=== PATIENT | male | born 1960 | race Caucasian/White ===

== ENCOUNTER → 2016-12-28 | Outpatient (CLI) | payer OTHER ==
[~2016-12-28] MED LIST: ARMOUR THYROID60 MG PO; ASPIRIN325 MG PO; ATIVAN 1 MG1 MG PO; BENICAR 20 MG20 MG PO; BRINTELLIX10 MG PO; DESYREL100 MG PO; DRISDOL 5050000 UNIT PO; FLOMAX0.4 MG PO; LANTUS (IN100 UNIT/M SUB-Q; LOPRESSOR25 MG PO; NITROSTAT0.4 MG SL; NORVASC2.5 MG PO; NOVOLIN R100 UNIT/1 SUB-Q; NOVOLIN-R100 UNIT/M SUB-Q; PROAIR RESPICL90 MCG INH; PROMETHAZINE HC25 M1 PO; PROTONIX40 MG PO; SINGULAIR10 MG; VITAMIN D35000 UNI1 PO; ZOCOR80 MG PO; ZOLOFT100 MG PO; ZOMIG5 MG PO
--- NOTE | ~2016-12-28 | PUL ---
PATIENT'S NAME: SEVERIANO MACK [facility] AGE: 56 Y [address] ROOM: [place] [id number] LOCATION: [facility] ADMIT DATE: 12/28/2016 Pulmonary DISCHARGE DATE: FAMILY PHYSICIAN: Bertin Mueller MD ATTENDING PHYSICIAN: Barry Edmond NAME OF PROCEDURE: Pulmonary Function Test DATE OF PROCEDURE: December 28, 2016 TECH: ATripe, OUTLET MANAGER REASON FOR EXAM: Shortness of breath RESULTS: 1. FVC was 4.5 liters which is 89% of predicted and normal, FEV1 was 3.71 liters which is 95% of predicted and normal, and FEV1/FVC was 82% and normal. The flow volume curve did not reveal any significant airflow limitation. After bronchodilator administration FVC increased to 4.89 liters which is a 9% increase and FEV1 increased to 3.92 liters which is a 6% increase. FEV1/FVC was 80%. 2. DLCO was 25.6 with an adjusted DLCO of 25.3 which is 96% of predicted and normal. 3. Total lung capacity was 6.48 liters which is 93% of predicted and normal, and residual volume was 1.77 liters which is 75% of predicted and normal. PHYSICIAN INTERPRETATION: The patient has no airflow limitation and no significant bronchodilator response. His diffusion capacity is normal. There is no evidence of restrictive lung disease. Essentially this is a normal pulmonary function test. MD MARIBEL BAUTISTA/awilda /[id number] dtt: 12/29/16 1401 , BALINE NICHOLS dtd: 12/29/16 1118
== END | disposition disaster alternative care site (69) ==
LOC: GRTH 08:46
DX: R06.09 Other forms of dyspnea (principal)